=== PATIENT | female | born 1980 | race Caucasian/White ===

== ENCOUNTER 2018-08-14 19:22 | Emergency (ER) | payer MEDICAID ==
[~2018-08-14] VITALS: Ht 154.9 cm; Wt 62.4 kg
[~2018-08-14 19:22] MED LIST: ACET500C5 PO; PREN1TAB62 PO
[2018-08-14 19:46] VITALS: Ht 154.9 cm; Wt 62.4 kg
[2018-08-14] MEDS ORDERED: LIDOCAINE 2% (MDV) 20 ML INJ INJ STA (22:01)
[2018-08-14] MEDS ORDERED: DIPHTH/TET/ACEL PERTUSS (ADULT) 0.5 ML VIAL IM* ONE (22:30)
[2018-08-14] MEDS ORDERED: CEPH-443 PO (23:09)
[2018-08-14] MEDS ORDERED: BACITRACIN 0.9 GM OINT TOP STA (23:17)
[2018-08-14] MEDS ORDERED: BACITRACIN 0.9 GM OINT ONE (23:19)
[2018-08-14 23:25] VITALS: BP 134/87; PULSE 81; RESP 18
[2018-08-14] MEDS ORDERED: BACITRACIN 0.9 GM OINT TOP ONE (23:30)
--- NOTE | 2018-08-15 05:08 | ERD ---
ER Documentation Chief Complaint Chief Complaint LACERATION TO LT 4TH DIGIT SINCE YESTERDAY HPI This is a 38-year-old [id number] female presents to the ED with a laceration to left fourth digit. Patient states she was chopping up chili peppers at home when she accidentally cut the distal tip of her left fourth digit yesterday at 5 PM. She states she cleaned the wound extensively with water and soap afterwards. She presents today for increasing pain and swelling. Denies any associated fevers or chills. Denies any discharge. Does not know if return is up-to-date. No other injury sustained. ROS All systems reviewed and are negative except as per history of present illness. Medications Home Meds Active Scripts Cephalexin* (Keflex*) 500 Mg Capsule, 500 MG PO QID for 5 Days, CAP Prov:SLOAN PAT PA-C 08/14/18 Acetaminophen* (Tylophen*) 500 Mg Capsule, 1 CAP PO Q4H WHILE AWAKE PRN for PAIN AND OR ELEVATED TEMP, #30 CAP Prov:DUNIA MAHER PA-C 08/19/15 Reported Medications Vit-Iron Fumarate-FA ( Vitamin Tablet) 1 Each Tablet, 1 TAB PO DAILY, TAB 01/18/16 Allergies Allergies: Coded Allergies: No Known Allergy (Unverified , 02/15/16) PMhx/Soc History of Surgery: No Anesthesia Reaction: No Hx Neurological Disorder: No Hx Respiratory Disorders: No Hx Cardiac Disorders: No Hx Psychiatric Problems: Yes (Anxiety; Depression) Hx Miscellaneous Medical Probl: No Hx Alcohol Use: No (HX ) Hx Substance Use: 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 Neck: Full range of motion. No meningismus. Skin: + 2.5 cm horizontal laceration at the distal tip of her left fourth digit, not involving the nail bed. No active bleeding. Mild TTP along distal tip. Has full range of motion of the fingers. FDP of the right fingers intact. Cap refill less than 2 seconds. Peripheral pulses intact. Right upper extremity normal. Ext: No cyanosis, or edema Neur: Awake and alert Psych: Normal Mood and Affect Results 24 hrs Current Medications Medications Dose Sig/Audie Start Time Status Last (Trade) Ordered Route PRN Stop Time Admin Dose Reason Admin Diphtheria/ 0.5 ml ONCE ONCE 08/14/18 DC 08/14/18 Tetanus/Acell IM* 22:30 22:15 Pertussis 08/14/18 22:31 (Adacel) Lidocaine 20 ml ONCE STAT 08/14/18 DC 08/14/18 (Xylocaine INJ 22:01 22:15 2% (Mdv) 20 08/14/18 22:02 ml) Bacitracin 1 applic ONCE ONCE 08/14/18 DC 08/14/18 (Bacitracin TOP 23:30 23:20 Oint (Ud)) 08/14/18 23:30 Bacitracin 1 applic ONCE STAT 08/14/18 DC (Bacitracin TOP 23:17 Oint (Ud)) 08/14/18 23:20 Bacitracin 1 applic STK-MED 08/14/18 DC (Bacitracin ONCE .ROUTE 23:19 Oint (Ud)) 08/14/18 23:20 Procedures/MDM PROCEDURES: Laceration Repair by me: Anesthesia: 1% lidocaine digital block Location: Distal tip of left fourth digit. Tendon/Joint/Nerves: No injury Foreign body: None detected after copious irrigation and exploration Technique: Simple Interrupted Sutures x 2 Complexity: No subcutaneous sutures/mucosal repair/edge excision Post Closure Length: 2.5 cm Patient's bleeding was easily controlled in the department and there is no indication of anemia. No evidence of compartment syndrome, neurologic injury, vascular injury, open joint, tendon laceration, or foreign body. Patient is appropriate for outpatient follow up. 48 hour wound check. Scar minimization instructions given. ED COURSE: The patient was given her tetanus shot. The medication was well tolerated. The patient remained stable throughout ED course. MEDICAL DECISION MAKIN-year-old female presents with a laceration to her finger sustained greater than 24 hours ago. Her neurovascular exam is normal. Given that the laceration was deep and gaping, 2 loosely approximated sutures were placed. Tetanus was also updated. Patient's extremity symptoms have stabilized while they have been evaluated in the department and are appropriate for outpatient follow up. No evidence of compartment syndrome, neurologic injury, vascular injury, open joint, open fracture, tendon laceration, or foreign body. Given that injury was over 24 hours ago, will provide Rx antibiotics for prophylactic treatment. She has no evidence of tenosynovitis, cellulitis or deep space tissue infection at this time. Recommended wound recheck in 2 days, suture removal in 7 days. Strict return precautions were discussed. PRESCRIPTIONS: Keflex SPECIALIST FOLLOW UP RECOMMENDED: None Patient has been advised to follow up with primary care in 1-2 days. Departure Diagnosis: Primary Impression: Laceration Condition: Stable Patient Instructions: Laceration, Hand Referrals: [facility] YOU HAVE RECEIVED A MEDICAL SCREENING EXAM AND THE RESULTS INDICATE THAT YOU DO NOT HAVE A CONDITION THAT REQUIRES URGENT TREATMENT IN THE EMERGENCY DEPARTMENT. FURTHER EVALUATION AND TREATMENT OF YOUR CONDITION CAN WAIT UNTIL YOU ARE SEEN IN YOUR DOCTORS OFFICE WITHIN THE NEXT 1-2 DAYS. IT IS YOUR RESPONSIBILITY TO MAKE AN APPOINTMENT FOR FOLOW-UP CARE. IF YOU HAVE A PRIMARY DOCTOR --you should call your primary doctor and schedule an appointment IF YOU DO NOT HAVE A PRIMARY DOCTOR YOU CAN CALL OUR PHYSICIAN REFERRAL HOTLINE AT IF YOU CAN NOT AFFORD TO SEE A PHYSICIAN YOU CAN CHOSE FROM THE FOLLOWING [facility] [address] [facility]. [facility] [address] [facility] [facility] [address] [facility]. [facility] [address] [facility] [facility] [address] [facility]. [facility]. [address] [facility]. [facility] YOU HAVE RECEIVED A MEDICAL SCREENING EXAM AND THE RESULTS INDICATE THAT YOU DO NOT HAVE A CONDITION THAT REQUIRES URGENT TREATMENT IN THE EMERGENCY DEPARTMENT. FURTHER EVALUATION AND TREATMENT OF YOUR CONDITION CAN WAIT UNTIL YOU ARE SEEN IN YOUR DOCTORS OFFICE WITHIN THE NEXT 1-2 DAYS. IT IS YOUR RESPONSIBILITY TO MAKE AN APPOINTMENT FOR FOLOW-UP CARE. IF YOU HAVE A PRIMARY DOCTOR --you should call your primary doctor and schedule and appointment IF YOU DO NOT HAVE A PRIMARY DOCTOR YOU CAN CALL OUR PHYSICIAN REFERRAL HOTLINE AT . IF YOU CAN NOT AFFORD TO SEE A PHYSICIAN YOU CAN CHOSE FROM THE FOLLOWING [facility] INSTITUTIONS: [facility] [id number] [place] [address] [facility] [address] [place] [address] [facility] + [facility] [address] [place] [address] [facility] URGENT CARE/SPECIALTIES Additional Instructions: Take the antibiotic for the next few days. Recommend keeping your wound clean and dry. The wound needs to be rechecked in 2 days by your primary care provider, and the sutures can be removed in 7 days. Monitor for any worsening pain, fevers, numbness, tingling or any other complaints. Return here for any new or worsening symptoms. SLOAN PAT PA-C August 15, 2018 05:08
== END 2018-08-14 23:30 | disposition home or self-care (01) ==
LOC: FTE 19:22
DX: S61.215A Laceration without foreign body of left ring finger without damage to nail, initial encounter (principal); W26.9XXA Contact with unspecified sharp object(s), initial encounter; Y92.9 Unspecified place or not applicable; Z23 Encounter for immunization
CPT/HCPCS: 12001; 90471; 90715; Z7502; Z7610